=== PATIENT | male | born 1975 | race Caucasian/White ===

== ENCOUNTER → 2020-06-18 | Emergency (ER) | payer OTHER ==
[~2020-06-18] VITALS: Ht 190.5 cm; Wt 108.9 kg
[~2020-06-18] MED LIST: ZOFRAN ODT4 MG PO
[2020-06-18 22:02] VITALS: BP 120/78
== END ==
LOC: M.ERS 20:20
DX: S06.0X1A Concussion with loss of consciousness of 30 minutes or less, initial encounter (principal); V86.59XA Driver of other special all-terrain or other off-road motor vehicle injured in nontraffic accident, initial encounter; Y93.89 Activity, other specified; Y92.89 Other specified places as the place of occurrence of the external cause; Y99.8 Other external cause status